=== PATIENT | male | born 1960 | race Caucasian/White ===

== ENCOUNTER → 2017-05-18 | Outpatient (CLI) | payer BC ==
--- NOTE | 2017-05-18 14:07 | XR ---
Left shoulder HISTORY: Left shoulder pain 3 views of the left shoulder No comparisons Bone mineralization, joint spaces and alignment are maintained. Left lung apex as visualized is reece l. IMPRESSION: No abnormalities evident, consider shoulder MRI for better evaluation.
== END | disposition home or self-care (01) ==
LOC: RADXRMAIN 11:30
PROVIDERS: ATTEND Family Medicine
DX: M25.512 Pain in left shoulder (principal)

== ENCOUNTER → 2017-06-01 | Outpatient (CLI) | payer BC ==
--- NOTE | 2017-06-01 13:36 | MR ---
EXAMINATION TYPE: MR shoulder LT wo con DATE OF EXAM: 06/01/2017 COMPARISON: Radiograph 05/18/2017 HISTORY: 56-year-old male pain in lt shoulder TECHNIQUE: Multiplanar, multisequence imaging of the left shoulder shoulder is performed without cont rast. FINDINGS: The long head biceps tendon shows abnormal intracapsular signal and becomes diminutive at the junctio n of the intracapsular and extracapsular portions. It is also medially subluxed along the lesser tube rosity with mild to moderate tenosynovial fluid. There appears to be a significant tear of the subscapularis tendon. Some of the superiormost bursal s ided fibers remain intact. A few of the articular sided fibers seem to be present along the inferior aspect of the tendon. Otherwise, full-thickness tear is present. There is heterogeneity of both the supraspinatus and infraspinatus tendons with intrasubstance change especially at the junction of the supraspinatus and infraspinatus tendons. There is some bursal side d fraying of the supraspinatus tendon. No high-grade partial or full thickness tear of either intrave nous or infraspinatus tendons. No atrophy of the rotator cuff musculature. There is mild fluid within the subacromial/subdeltoid bursa. Degenerative signal within the superior labrum with suggestion of a 5 mm paralabral cyst posterosuper iorly. There is fluid signal undercutting the labral chondral junction along the anterior glenoid all the way down to the anterior inferior quadrant. A small glenohumeral joint effusion is present. Minimal inferior spurring is noted. Mild degenerative joint space narrowing with capsular hypertrophy at the acromioclavicular joint. No significant impingement on the underlying cuff. No Hill-Sachs deformity or os acromiale. No suspicious bone marrow replacement. IMPRESSION: 1. Diffuse rotator cuff tendinosis with a significant full-thickness tear of the subscapularis tendon . Some of the most superior bursal sided fibers and most inferior articular sided fibers seem to randolph in intact. 2. This tear allows for medial subluxation of the long head biceps tendon which is tendinotic and lik jayden has a large partial thickness tear at the junction of the intracapsular and extracapsular portion s. Associated long head biceps tenosynovitis. 3. Intrasubstance change within the supraspinatus and infraspinatus tendon without high-grade partial or full-thickness tears. 4. Degenerative signal in the superior labrum. There may be an anterior labral tear rather than subla bral foramen given extension of signal down to the anterior-inferior quadrant. 5. Small glenohumeral joint effusion, small effusion within the subacromial/subdeltoid bursa, and mil d AC joint OA.
== END | disposition home or self-care (01) ==
LOC: RADMRIMAIN 08:02
PROVIDERS: ATTEND Physician Assistant
DX: S46.912A Strain of unspecified muscle, fascia and tendon at shoulder and upper arm level, left arm, initial encounter (principal); M75.102 Unspecified rotator cuff tear or rupture of left shoulder, not specified as traumatic; M19.012 Primary osteoarthritis, left shoulder

== ENCOUNTER → 2017-07-05 | Outpatient (CLI) | payer BC ==
[2017-07-05 10:06] LABS: EKG EKG PERFORMED
[2017-07-05 10:24] LABS: Basophils # (A) 0.1 k/uL (0-0.2); Basophils % (A) 1 %; CH 32.2; CHCM 34.5; Eosinophils # (A) 0.3 k/uL (0-0.7); Eosinophils % (A) 3 %; HCT 49.8 % (39.0-53.0); HDW 2.54; Luc # (Auto) 0.18; Luc % (Auto) 2; Lymphocytes # (A) 3.3 k/uL (1.0-4.8); Lymphocytes % (A) 33 %; MCV 93.9 fL (80.0-100.0); Mean Platelet Volume 6.9; Monocytes # (A) 0.5 k/uL (0-1.0); Monocytes % (A) 5 %; Neutrophils # (A) 5.6 k/uL (1.3-7.7); Neutrophils % (A) 56 %; RDW 13.1 % (11.5-15.5); WBC 9.9 k/uL (3.8-10.6); WBC (Perox) 9.86
[2017-07-05 10:51] LABS: Anion Gap 8 mmol/L; Carbon Dioxide 23 mmol/L (22-30); Chloride 106 mmol/L (98-107); Potassium 4.8 mmol/L (3.5-5.1); Sodium 137 mmol/L (137-145)
== END | disposition home or self-care (01) ==
LOC: LABPAT 09:32
PROVIDERS: ATTEND Orthopaedic Surgery
DX: Z01.810 Encounter for preprocedural cardiovascular examination (principal); M75.42 Impingement syndrome of left shoulder; Z01.812 Encounter for preprocedural laboratory examination
CPT/HCPCS: 80051; 85025; 93005

== ENCOUNTER 2017-07-14 08:40 | Day surgery (SDC) | payer BC ==
[2017-07-12 15:19] VITALS: BMI 22.7
--- NOTE | 2017-07-13 14:12 | HP ---
HISTORY AND PHYSICAL DATE OF ADMISSION: 07/14/2017 iGovani Goldman is a 56-year-old patient seen with progressive left shoulder pain. After treatment options were discussed, he elected to proceed with left shoulder arthroscopy. Consent was obtained. PAST MEDICAL HISTORY: Noncontributory. PAST SURGICAL HISTORY: Eye surgery. DAILY MEDICATIONS: Tramadol. ALLERGIES: None. SOCIAL HISTORY: Patient smokes cigarettes. PHYSICAL EVALUATION LEFT SHOULDER: Flexion 140 degrees. Abduction 120 degrees. External rotation is 25 degrees with weakness, tenderness along the anterolateral acromion rotator cuff insertion site. Impingement is positive 90 degrees, distal neurovascular exam is intact. RADIOGRAPHS: Obtained of the left shoulder revealed a type 2 anterior acromion. Evidence for acromioclavicular joint osteoarthritis. Left shoulder MRI revealed rotator cuff tear, biceps subluxation with partial tear. IMPRESSION: Left shoulder impingement with rotator cuff tear, partial biceps tendon tear and acromioclavicular joint osteoarthritis. PLAN: Left shoulder arthroscopy with subacromial decompression, probable arthroscopic rotator cuff repair, Breonna procedure, probable biceps tenotomy and debridement. MMODL / IJN: [id number] /
[~2017-07-14 08:40] MED LIST: HYDROmorphone 1 MG/ML 1 ML SYRINGE IVP PRN; LACTATED RINGERS 1,000 ML IV SCH; ceFAZolin 1,000 MG in DEXTROSE/WATER 1 50ML.BAG IV ONE; fentaNYL (PF) 50 MCG/ML 2 ML AMP IV PRN
[2017-07-14] MEDS ORDERED: ONDANSETRON 4 MG/2 ML VIAL IVP ONE (09:21)
[2017-07-14] MEDS ORDERED: DEXAMETHASONE SOD PHOS (MDV) 100 MG/10 ML VIAL IV ONE (09:22)
[2017-07-14] MEDS ORDERED: MIDAZOLAM 2 MG/2 ML VIAL IV ONE (09:30)
[2017-07-14] MEDS ORDERED: ROPIVACAINE 5 MG/ML 30 ML VIAL ONE (10:22)
[2017-07-14] MEDS ORDERED: PROPOFOL 10 MG/ML 20 ML VIAL IV ONE (10:22)
[2017-07-14] MEDS ORDERED: fentaNYL (PF) 50 MCG/ML 2 ML AMP ONE (10:22)
[2017-07-14] MEDS ORDERED: LIDOCAINE 2%-EPI 1:100,000 20 ML VIAL ONE (10:22)
[2017-07-14] MEDS ORDERED: LIDOCAINE 1% INJ 10MG/ML (20 ML MDV) ONE (10:22)
[2017-07-14] MEDS ORDERED: ROCURONIUM BROMIDE 10 MG/ML 10 ML VIAL IV ONE (10:22)
[2017-07-14] MEDS ORDERED: NEOSTIGMINE 1 MG/ML 10 ML VIAL ONE (10:22)
[2017-07-14] MEDS ORDERED: GLYCOPYRROLATE 0.2 MG/ML 2 ML VIAL ONE (10:22)
[2017-07-14] MEDS ORDERED: MIDAZOLAM 2 MG/2 ML VIAL ONE (10:22)
[2017-07-14 11:57] VITALS: TEMP 97
--- NOTE | 2017-07-14 12:05 | P.OP ---
Date of Procedure: 07/14/17 Preoperative Diagnosis: Left shoulder impingement Postoperative Diagnosis: 1. Left shoulder impingement 2. Left shoulder partial rotator cuff tear 3. Left shoulder biceps tendon tear 4. Left shoulder superficial labral tear Procedure(s) Performed: 1. Left shoulder arthroscopic subacromial decompression 2. Left shoulder arthroscopic debridement partial rotator cuff tear 3. Left shoulder arthroscopic debridement biceps tendon stump 4. Left shoulder arthroscopic debridement superficial labral tear Implants: None Anesthesia: GETA, regional (Shoulder block) Surgeon: Alvaro Pickering Consumer Insight Analyst #1: Sam Gracia Estimated Blood Loss (ml): 10 Pathology: none sent Condition: stable Disposition: PACU Indications for Procedure: 56-year-old patient seen with progressive left shoulder pain. After treatment options were discussed he elected to proceed with arthroscopy. Operative Findings: See description of procedure Description of Procedure: Patient underwent a shoulder block by department of anesthesia. The patient was then taken to the operative suite. The patient underwent a general anesthetic by the department of anesthesia. The patient was placed into a lateral position and secured. There was appropriate padding of the bony prominence. Left shoulder was then prepped and draped in normal sterile orthopedic fashion. We placed the extremity in 10 pounds of longitudinal traction. A posterior incision was now made for a posterior working portal site. The trocar and cannula were inserted into the glenohumeral joint. Arthroscopy was initiated. Spinal needle was now inserted anteriorly, to ascertain the anterior working portal site. An incision was now made in that area, a trocar was inserted followed by a probe. There was an obvious biceps tendon tear present. There was a very large prominent stump present. There was superficial tearing of the anterior labrum present. There was an area anteriorly of grade 1 chondromalacia of the glenoid no osteochondral tears. There was a central area of grade 1 chondral malacia the humeral head with no osteochondral tears present. The posterior and inferior labrum were found to be intact. The superior labrum was diminutive but without tear. I proceeded reading that biceps stump down to the insertion area. I debrided the superficial labral tear anteriorly down to stable tissue. The residual labrum was found to be stable. At this point instruments removed from the glenohumeral joint. Utilizing the posterior working portal site, the trocar and cannula were inserted into the subacromial space. Arthroscopy initiated. I made an incision 2 fingerbreadths lateral to the acromion. I introduced my trocar followed by my ArthroCare ablator. I now began ablating thick subacromial bursal tissue, which exposed the undersurface of the anterior acromion. This was diminished subacromial space. There was a very prominent anterior acromion. A motorized bur was introduced and a subacromial decompression was performed. I also excised some osteophytes off the inferior aspect of the distal clavicle. The AC joint was visualized and noted to be moderately arthritic. I did not think enough toward a Breonna procedure. I turned my attention to the rotator cuff. There was obvious superficial tearing along the distal supraspinatus area. I used a motorized shaver and debrided that down to stable tissue. I thoroughly probed the area and did not appreciate an obvious perforation as residual tissue appeared to be robust. I injected 1 mL Allogen intra-articular. Instruments now removed from the portal sites. All portal sites were approximated with nylon suture. Sterile dressings were applied followed by a shoulder immobilizer. The patient was awakened, transferred to a bed, and taken to recovery in stable condition.
[2017-07-14] MEDS ORDERED: LACTATED RINGERS 1,000 ML IV ONE (12:30)
[2017-07-14 12:45] VITALS: RESP 18
[2017-07-14 13:51] VITALS: BP 134/88; PULSE 51
== END 2017-07-14 14:08 | disposition home or self-care (01) ==
LOC: OR 08:40
PROVIDERS: ATTEND Orthopaedic Surgery
DX: M25.812 Other specified joint disorders, left shoulder (principal); M75.112 Incomplete rotator cuff tear or rupture of left shoulder, not specified as traumatic; S46.212A Strain of muscle, fascia and tendon of other parts of biceps, left arm, initial encounter; S43.402A Unspecified sprain of left shoulder joint, initial encounter; X58.XXXA Exposure to other specified factors, initial encounter; M94.212 Chondromalacia, left shoulder; M25.712 Osteophyte, left shoulder; F17.210 Nicotine dependence, cigarettes, uncomplicated; Z79.891 Long term (current) use of opiate analgesic; Z79.899 Other long term (current) drug therapy
CPT/HCPCS: 64415; 29826; 29827; C1765; J2250; J2710; J2405; J2001; J3010; J0690; J1100; J2795; J2704

== ENCOUNTER → 2017-10-14 | Outpatient (CLI) | payer BC ==
--- NOTE | 2017-10-14 10:09 | MR ---
EXAMINATION TYPE: MR shoulder RT wo con DATE OF EXAM: 10/14/2017 COMPARISON: Radiograph 09/07/2017 HISTORY: 56-year-old male with right shoulder pain TECHNIQUE: Multiplanar, multisequence imaging of the right shoulder is performed without contrast. FINDINGS: There may be a small interstitial tear within the intracapsular portion of the lung and biceps tendon , sagittal T2 FS image 14. Period there is mild to moderate tenosynovial fluid along the lung and bic eps tendon sheath. There is partial articular sided tear which seems to involve the mid to inferior third subscapularis tendon. There is no muscle atrophy. Heterogeneity of both the supraspinatus and infraspinatus tendons. There is a full-thickness tear of the anterior to mid supraspinatus tendon measuring 1.2 cm long and 1.2 cm AP dimension. There is flui d interposed within the tendon gap and a contiguous mild subacromial/subdeltoid bursal effusion. The infraspinatus tendon remains intact. No rotator cuff muscle atrophy. There is mild degenerative change at the glenoid humeral joint. Mild capsular hypertrophy is noted. M inimal contact of the distal clavicle with the underlying cause. Evaluation the glenohumeral joint shows irregular signal extending within the superior labrum extendi ng to the superior aspect of the posterior labrum and into the biceps anchor. No paralabral cyst. Overall articular cartilage appears maintained. No significant joint effusion. No Hill-Sachs deformity or os acromiale. No suspicious bone marrow replacement. Patchy red marrow hyp erplasia is present and can be seen in the setting of anemia, obesity, smoking, and chronic disease. IMPRESSION: 1. Rotator cuff tendinosis with a full-thickness tear of the anterior to mid supraspinous tendon florian uring 1.2 x 1.2 cm. 2. Additional articular sided tear of the middle to inferior third subscapularis tendon. 3. No rotator cuff muscle atrophy. 4. SLAP tear. 5. Interstitial tear extending into the intracapsular long head biceps tendon with associated tenosyn ovitis.
== END | disposition home or self-care (01) ==
LOC: RADMRIMAIN 09:07
PROVIDERS: ATTEND Orthopaedic Surgery
DX: S46.811A Strain of other muscles, fascia and tendons at shoulder and upper arm level, right arm, initial encounter (principal); S43.431A Superior glenoid labrum lesion of right shoulder, initial encounter; S46.111A Strain of muscle, fascia and tendon of long head of biceps, right arm, initial encounter; M65.811 Other synovitis and tenosynovitis, right shoulder

== ENCOUNTER 2018-09-14 08:49 | Day surgery (SDC) | payer BC ==
[2018-09-12 08:36] VITALS: BMI 22.7
[~2018-09-14 08:49] MED LIST changes: -HYDROmorphone 1 MG/ML 1 ML SYRINGE IVP PRN; -ceFAZolin 1,000 MG in DEXTROSE/WATER 1 50ML.BAG IV ONE; -fentaNYL (PF) 50 MCG/ML 2 ML AMP IV PRN
[2018-09-14 09:18] VITALS: RESP 16; TEMP 98.3
[2018-09-14] MEDS ORDERED: LIDOCAINE 1% 20 ML VIAL (10MG/ML) FOR IV START INTRADERMA ONE (09:28)
--- NOTE | 2018-09-14 09:33 | P.GSHP ---
History of Present Illness H&P Date: 09/14/18 CHIEF COMPLAINT: Colon screen HISTORY OF PRESENT ILLNESS: The patient is a 57-year-old male who presents for colon screen. Lower endoscopy was offered for further evaluation and management. PAST MEDICAL HISTORY: Please see list. PAST SURGICAL HISTORY: Please see list. MEDICATIONS: Please see list. ALLERGIES: Please see list. SOCIAL HISTORY: No illicit drug use FAMILY HISTORY: No reports of Crohn disease or ulcerative colitis. REVIEW OF ORGAN SYSTEMS: CONSTITUTIONAL: No reports of fevers or chills. PHYSICAL EXAM: VITAL SIGNS: Stable GENERAL: Well-developed pleasant in no acute distress. HEENT: No scleral icterus. Extraocular movements grossly intact. Moist buccal mucosa. NECK: Supple without lymphadenopathy. CHEST: Unlabored respirations. Equal bilateral excursions. CARDIOVASCULAR: Regular rate and rhythm. Distal 2+ pulses. ABDOMEN: Soft, nontender, nondistended. MUSCULOSKELETAL: No clubbing, cyanosis, or edema. ASSESSMENT: 1. Colon screen. PLAN: 1. Recommend proceeding with a lower endoscopy Past Medical History Additional Past Medical History / Comment(s): HX OF LEFT EYE INJURY WITH SURGERY., PAIN LEFT SHOULDER. History of Any Multi-Drug Resistant Organisms: None Reported Additional Past Surgical History / Comment(s): EYE SURGERY Past Anesthesia/Blood Transfusion Reactions: No Reported Reaction Smoking Status: Current every day smoker - Past Family History Mother Family Medical History: No Reported History Father Family Medical History: No Reported History Medications and Allergies Home Medications Medication Instructions Recorded Confirmed Type Varenicline Tartrate [Chantix] 1 mg PO DAILY 07/12/17 09/12/18 History Sildenafil Citrate [Viagra] 25 mg PO ONCE PRN 08/27/17 09/12/18 History Allergies Allergy/AdvReac Type Severity Reaction Status Date / Time No Known Allergies Allergy Verified 09/14/18 09:15 Surgical - Exam Vital Signs Temp Pulse Resp BP Pulse Ox 98.3 F 62 16 145/87 95 09/14/18 09:17 09/14/18 09:17 09/14/18 09:17 09/14/18 09:17 09/14/18 09:17
[2018-09-14] MEDS ORDERED: LIDOCAINE 1% INJ 10MG/ML (20 ML MDV) ONE (10:03)
[2018-09-14] MEDS ORDERED: GLYCOPYRROLATE 0.2 MG/ML 2 ML VIAL ONE (10:03)
[2018-09-14] MEDS ORDERED: PROPOFOL 10 MG/ML 20 ML VIAL IV ONE (10:03)
--- NOTE | 2018-09-14 10:29 | P.PCN ---
Date of Procedure: 09/14/18 Description of Procedure: PREOPERATIVE DIAGNOSIS: Colonic surveillance History of high-risk colon polyps POSTOPERATIVE DIAGNOSIS: Colonic surveillance History of high-risk colon polyps Scattered diverticulosis. OPERATION: Colonoscopy to the ileocecal valve and appendiceal orifice. SURGEON: Kareen Vila MD. ANESTHESIA: MAC. INDICATIONS: The patient is a 57-year-old female who presents for colonoscopy surveillance due to high risk colon polyps. Last colonoscopy over one year ago. Benefits and risks were described and informed consent was obtained. DESCRIPTION OF PROCEDURE: The patient had undergone Gatorade, MiraLAX and Dulcolax prep. He had been brought into the operating room and laid in the left lateral decubitus position. After adequate intravenous sedation, the rectum was examined with 2% lidocaine jelly. No external hemorrhoids were encountered. The prostate was smooth and without abnormalities. The rectal tone was within normal limits. No lesions were palpated in the rectal vault. An Olympus colonoscope was advanced until the ileocecal valve and appendiceal orifice were clearly viewed. The prep was excellent with clear visualization of the mucosal folds. The scope was removed with visualization of each mucosal fold. Scattered diverticulosis was encountered. No colonic polyps were found. No evidence of focal colitis was found. Retroflexion of the scope demonstrated no internal hemorrhoids. The colon was desufflated. The patient had tolerated the procedure well. Withdrawal time was over 6 minutes. FINDINGS: No internal hemorrhoids No external prolapsed hemorrhoids. No arteriovenous malformations. No adenomatous polyps. Scattered diverticulosis. No focal colitis. RECOMMENDATIONS: Repeat lower endoscopy 3 years, 2020 due to high risk colon polyps Plan - Discharge Summary New Discharge Prescriptions: No Action Varenicline Tartrate [Chantix] 1 mg PO DAILY Sildenafil Citrate [Viagra] 25 mg PO ONCE PRN PRN Reason: E.D. Discharge Medication List Varenicline Tartrate [Chantix] 1 mg PO DAILY 07/12/17 [History] Sildenafil Citrate [Viagra] 25 mg PO ONCE PRN 08/27/17 [History]
[2018-09-14 10:56] VITALS: BP 138/84; PULSE 50
== END 2018-09-14 11:10 | disposition home or self-care (01) ==
LOC: ORWHC2ENDO 08:49
PROVIDERS: ATTEND Surgery Plastic and Reconstructive Surgery
DX: Z12.11 Encounter for screening for malignant neoplasm of colon (principal); K57.90 Diverticulosis of intestine, part unspecified, without perforation or abscess without bleeding; Z86.010 Personal history of colon polyps; Z79.899 Other long term (current) drug therapy; F17.200 Nicotine dependence, unspecified, uncomplicated
CPT/HCPCS: J2001; J2704; G0105; 45378

== ENCOUNTER 2020-08-05 11:54 | Emergency (ER) | payer BC ==
[2020-08-05 12:29] VITALS: RESP 18
--- NOTE | 2020-08-05 12:50 | ED ---
Lower Extremity Injury HPI - General Chief Complaint: Extremity Injury, Lower Stated Complaint: R Ankle Injury Time Seen by Provider: 08/05/20 12:32 Source: patient, RN notes reviewed Mode of arrival: ambulatory Limitations: no limitations - History of Present Illness Initial Comments: 59-year-old male presents emergency Department chief complaint of right ankle injury. Patient states that he did not realize his foot fussy once sitting up and states it rolled. Patient with her ankle foot pain presents from this happened yesterday. No other injuries noted. - Related Data Home Medications Medication Instructions Recorded Confirmed Varenicline Tartrate [Chantix] 1 mg PO DAILY 07/12/17 09/12/18 Sildenafil Citrate [Viagra] 25 mg PO ONCE PRN 08/27/17 09/12/18 Allergies Allergy/AdvReac Type Severity Reaction Status Date / Time No Known Allergies Allergy Verified 09/14/18 09:15 Review of Systems ROS Statement: Those systems with pertinent positive or pertinent negative responses have been documented in the HPI. ROS Other: All systems not noted in ROS Statement are negative. Past Medical History Additional Past Medical History / Comment(s): HX OF LEFT EYE INJURY WITH SURGERY., PAIN LEFT SHOULDER. History of Any Multi-Drug Resistant Organisms: None Reported Additional Past Surgical History / Comment(s): EYE SURGERY Past Anesthesia/Blood Transfusion Reactions: No Reported Reaction Past Psychological History: No Psychological Hx Reported Past Alcohol Use History: Occasional Past Drug Use History: None Reported - Past Family History Mother Family Medical History: No Reported History Father Family Medical History: No Reported History General Exam Limitations: no limitations General appearance: alert, in no apparent distress Head exam: Present: atraumatic, normocephalic, normal inspection Neck exam: Present: normal inspection, full ROM. Absent: tenderness, meningismus, lymphadenopathy Respiratory exam: Present: normal lung sounds bilaterally. Absent: respiratory distress, wheezes, rales, rhonchi, stridor Cardiovascular Exam: Present: regular rate, normal rhythm, normal heart sounds. Absent: systolic murmur, diastolic murmur, rubs, gallop, clicks Extremities exam: Present: other (Right ankle, foot there is ecchymosis, moderate swelling noted tenderness on the lateral portion neurovascular intact no proximal tib-fib tenderness) Course Vital Signs 08/05/20 12:27 Temperature 99.1 F Pulse Rate 69 Respiratory 18 Rate Blood Pressure 147/91 O2 Sat by Pulse 98 Oximetry Medical Decision Making - Medical Decision Making X-rays were reviewed and read by radiologist there is no acute fracture. Angelica ent is a right ankle right foot sprain. Disposition Clinical Impression: Right ankle sprain, Right foot sprain Disposition: HOME SELF-CARE Condition: Stable Instructions (If sedation given, give patient instructions): Ankle Sprain (ED), Foot Sprain (ED) Additional Instructions: Please return to the Emergency Department if symptoms worsen or any other concerns. Is patient prescribed a controlled substance at d/c from ED?: No Referrals: Louie Clay MD [Primary Care Provider] - 1-2 days Time of Disposition: 13:35
--- NOTE | 2020-08-05 13:33 | XR ---
EXAMINATION TYPE: XR ankle complete RT, XR foot complete RT DATE OF EXAM: 08/05/2020 CLINICAL HISTORY: Pain from injury one day ago TECHNIQUE: Frontal, lateral and oblique images of the right ankle and foot are obtained. COMPARISON: None. FINDINGS: There is no acute fracture/dislocation evident in the right foot or ankle. The ankle mort ise appears within normal limits. The joint spaces are preserved. Normal osseous mineralization. Ov erlying soft tissue is unremarkable. IMPRESSION: There is no acute fracture or dislocation in the right ankle or foot.
[2020-08-05 13:49] VITALS: BP 165/98; PULSE 70; TEMP 97.8
== END 2020-08-05 13:49 | disposition home or self-care (01) ==
LOC: EC 11:54
DX: S93.401A Sprain of unspecified ligament of right ankle, initial encounter (principal); S93.601A Unspecified sprain of right foot, initial encounter; Z79.899 Other long term (current) drug therapy; W19.XXXA Unspecified fall, initial encounter
CPT/HCPCS: 73610; 73630; 99283; 29515; L4350

== ENCOUNTER → 2021-11-21 | Outpatient (CLI) | payer BC | END | disposition home or self-care (01) | LOC: LABPAT 09:50 | PROVIDERS: ATTEND Surgery Plastic and Reconstructive Surgery | DX: Z20.822 Contact with and (suspected) exposure to COVID-19 (principal) | CPT/HCPCS: U0003; C9803 ==

== ENCOUNTER 2021-11-26 08:23 | Day surgery (SDC) | payer BC ==
[2021-11-20 15:23] VITALS: BMI 22.8
[~2021-11-26 08:23] MED LIST changes: +LIDOCAINE 1% (10MG/ML) FOR IV START INTRADERMA PRN
--- NOTE | 2021-11-26 08:38 | P.GSHP ---
History of Present Illness H&P Date: 11/26/21 CHIEF COMPLAINT: Colon screen HISTORY OF PRESENT ILLNESS: The patient is a 60-year-old male who presents for colon screen. Lower endoscopy was offered for further evaluation and management. PAST MEDICAL HISTORY: Please see list. PAST SURGICAL HISTORY: Please see list. MEDICATIONS: Please see list. ALLERGIES: Please see list. SOCIAL HISTORY: No illicit drug use FAMILY HISTORY: No reports of Crohn disease or ulcerative colitis. REVIEW OF ORGAN SYSTEMS: CONSTITUTIONAL: No reports of fevers or chills. PHYSICAL EXAM: VITAL SIGNS: Stable GENERAL: Well-developed pleasant in no acute distress. HEENT: No scleral icterus. Extraocular movements grossly intact. Moist buccal mucosa. NECK: Supple without lymphadenopathy. CHEST: Unlabored respirations. Equal bilateral excursions. CARDIOVASCULAR: Regular rate and rhythm. Distal 2+ pulses. ABDOMEN: Soft, nontender, nondistended. MUSCULOSKELETAL: No clubbing, cyanosis, or edema. ASSESSMENT: 1. Colon screen. PLAN: 1. Recommend proceeding with a lower endoscopy Past Medical History Additional Past Medical History / Comment(s): Hx Lt Eye injury as child. Hx colon polyp History of Any Multi-Drug Resistant Organisms: None Reported Past Surgical History: Orthopedic Surgery Additional Past Surgical History / Comment(s): LT Eye surgery. Lt Shoulder surgery. Colonoscopy Past Anesthesia/Blood Transfusion Reactions: No Reported Reaction Smoking Status: Current every day smoker - Past Family History Mother Family Medical History: No Reported History Father Family Medical History: No Reported History Sister(s) Family Medical History: Cancer Additional Family Medical History / Comment(s): colon cancer Medications and Allergies Home Medications Medication Instructions Recorded Confirmed Type Sildenafil Citrate [Viagra] 100 mg PO ONCE PRN 08/27/17 11/20/21 History Allergies Allergy/AdvReac Type Severity Reaction Status Date / Time No Known Allergies Allergy Verified 11/20/21 15:05
[2021-11-26 09:02] VITALS: TEMP 97.3
[2021-11-26] MEDS ORDERED: PROPOFOL 10 MG/ML 20 ML VIAL IV ONE (09:56)
--- NOTE | 2021-11-26 10:29 | P.PCN ---
Date of Procedure: 11/26/21 Description of Procedure: PREOPERATIVE DIAGNOSIS: History of high-risk colon polyps POSTOPERATIVE DIAGNOSIS: History of high-risk colon polyps Scattered diverticulosis Colon polyp OPERATION: Colonoscopy to the ileocecal valve and appendiceal orifice. Colonoscopy with cold forceps biopsy SURGEON: Kareen Vila MD. ANESTHESIA: MAC. INDICATIONS: The patient is a 60-year-old male who presents for colonoscopy surveillance due to high risk colon polyps. Last colonoscopy 5 years ago. Benefits and risks were described and informed consent was obtained. DESCRIPTION OF PROCEDURE: The patient had undergone Sutab prep. He had been brought into the operating room and laid in the left lateral decubitus position. After adequate intravenous sedation, the rectum was examined with 2% lidocaine jelly. No external hemorrhoids were encountered. The prostate was smooth and without abnormalities. The rectal tone was within normal limits. No lesions were palpated in the rectal vault. An Olympus colonoscope was advanced until the ileocecal valve and appendiceal orifice were clearly viewed. The prep was excellent with clear visualization of the mucosal folds. The scope was removed with visualization of each mucosal fold. Scattered diverticulosis was encountered. No colonic polyps were found. No evidence of focal colitis was found. Retroflexion of the scope demonstrated no internal hemorrhoids. The colon was desufflated. The patient had tolerated the procedure well. Withdrawal time was over 6 minutes. FINDINGS: Aronchick preparation quality scale 1 (1-5) Internal hemorrhoids, grade 2 No external hemorrhoids No arteriovenous malformations. Sigmoid diverticulosis Removal of 1 polyp: - Cold forceps biopsy at 20 cm from the anal verge, 4 mm polyp, sigmoid colon No focal colitis. RECOMMENDATIONS: Repeat lower endoscopy 3 years, 2024 Plan - Discharge Summary Discharge Rx Participant: No New Discharge Prescriptions: Continue Sildenafil Citrate [Viagra] 100 mg PO ONCE PRN PRN Reason: E.D. Discharge Medication List Sildenafil Citrate [Viagra] 100 mg PO ONCE PRN 08/27/17 [History] Follow up Appointment(s)/Referral(s): Kareen Vila MD [STAFF PHYSICIAN] - 12/02/21 Patient Instructions/Handouts: Diverticulosis Diet (GEN), Diverticulosis (DC), Colorectal Polyps (GEN) Activity/Diet/Wound Care/Special Instructions: Repeat colonoscopy in 3 years2024 Discharge Disposition: HOME SELF-CARE
[2021-11-26 10:38] VITALS: RESP 16
[2021-11-26 10:55] VITALS: BP 127/79; PULSE 55
--- NOTE | 2021-11-26 11:14 | P.PN ---
Progress Note - Text Progress Note Date: 11/26/21 Patient reports painful inguinal hernia for over 1.5 months. Additional testing obtained 12-lead EKG demonstrating abnormality. CBC and BMP also obtained. Patient advised for immediate follow-up in the office 1 week.
[2021-11-26 11:27] LABS: Basophils % (A) 0 %; Eosinophils # (A) 0.3 k/uL (0-0.7); Eosinophils % (A) 3 %; HCT 47.7 % (39.0-53.0); HGB 15.9 gm/dL (13.0-17.5); Lymphocytes # (A) 2.4 k/uL (1.0-4.8); Lymphocytes % (A) 31 %; MCH 32.3 pg (25.0-35.0); MCHC 33.4 g/dL (31.0-37.0); MCV 96.5 fL (80.0-100.0); Mean Platelet Volume 8.2; Monocytes # (A) 0.4 k/uL (0-1.0); Monocytes % (A) 5 %; Neutrophils # (A) 4.7 k/uL (1.3-7.7); Neutrophils % (A) 59 %; Platelet Count 198 k/uL (150-450); RBC 4.94 m/uL (4.30-5.90); RDW 12.7 % (11.5-15.5); WBC 7.9 k/uL (3.8-10.6)
[2021-11-26 11:52] LABS: African American GFR (CKD) >90 (>60 ml/min/1.73 sqM); Anion Gap 5 mmol/L; Blood Urea Nitrogen 13 mg/dL (9-20); Calcium 9.3 mg/dL (8.4-10.2); Carbon Dioxide 26 mmol/L (22-30); Chloride 105 mmol/L (98-107); Glucose 88 mg/dL (74-99); Non-African American GFR(CKD) 84 (>60 ml/min/1.73 sqM); Potassium 4.6 mmol/L (3.5-5.1); Sodium 136 mmol/L (137-145)
== END 2021-11-26 11:33 | disposition home or self-care (01) ==
LOC: ORWHC2ENDO 08:23
PROVIDERS: ATTEND Surgery Plastic and Reconstructive Surgery
DX: K57.90 Diverticulosis of intestine, part unspecified, without perforation or abscess without bleeding (principal); F17.200 Nicotine dependence, unspecified, uncomplicated; Z86.010 Personal history of colon polyps
CPT/HCPCS: 45380; 88305; 80048; 85025; J2704

== ENCOUNTER → 2022-02-17 | Outpatient (CLI) | payer BC ==
--- NOTE | 2022-02-18 07:30 | CA ---
Transthoracic Echo Report Name: Giovani Goldman Age: 61 Gender: M : 1960 Exam Date: 02/17/2022 15:22 Exam Location: [facility] Ht (in): 66 Wt (lb): 145 Ordering Physician: Lalo Brar MD ([id number]) Attending/Referring Phys: Financial Institution Treasurer Marisol Hart RDCS Procedure CPT: Indications: R06.02 SHORTNESS OF BREATH Cardiac Hx: Technical Quality: Fair Contrast 1: Total Dose (mL): Contrast 2: Total Dose (mL): MEASUREMENTS (Male / Female) Normal Values 2D ECHO LV Diastolic Diameter PLAX 4.0 cm 4.2 - 5.9 / 3.9 - 5.3 cm LV Systolic Diameter PLAX 2.7 cm IVS Diastolic Thickness 1.1 cm 0.6 - 1.0 / 0.6 - 0.9 cm LVPW Diastolic Thickness 1.1 cm 0.6 - 1.0 / 0.6 - 0.9 cm LV Relative Wall Thickness 0.6 RV Internal Dim ED PLAX 3.7 cm LA Systolic Diameter LX 3.1 cm 3.0 - 4.0 / 2.7 - 3.8 cm LA Volume 46.6 cm 18 - 58 / 22 - 52 cm M-MODE Aortic Root Diameter MM 3.2 cm MV E Point Septal Separation 0.3 cm AV Cusp Separation MM 2.1 cm DOPPLER AV Peak Velocity 179.7 cm/s AV Peak Gradient 12.9 mmHg MV Area PHT 2.9 cm Mitral E Point Velocity 97.7 cm/s Mitral A Point Velocity 107.9 cm/s Mitral E to A Ratio 0.9 MV Deceleration Time 257.2 ms MV E' Velocity 9.1 cm/s Mitral E to MV E' Ratio 10.8 TR Peak Velocity 234.3 cm/s TR Peak Gradient 22.0 mmHg Right Ventricular Systolic Press 25.6 mmHg FINDINGS Left Ventricle Left ventricular ejection fraction is estimated at 55-60 %.Normal Left ventricular size, wall thickness, systolic function with no obvious regional wall motion abnormalities. Right Ventricle Mild right ventricular dilatation. Right ventricular systolic pressure within normal limits. Right Atrium Normal right atrial size. Left Atrium Normal left atrial size. Mitral Valve Structurally normal mitral valve. Trace to mild mitral regurgitation. Aortic Valve No aortic valve stenosis or regurgitation. Tricuspid Valve Mild tricuspid regurgitation. Pulmonic Valve Pulmonic valve not well visualized. Pericardium No pericardial effusion. Aorta Normal size aortic root and proximal ascending aorta. CONCLUSIONS Normal LV size and systolic function. Mildly dilated right ventricle. No significant abnormality on the Doppler exam. No pericardial effusion Previewed by: Dr. Lloyd Hartman MD (Electronically Signed) Final Date: 18 February 2022 07:29
== END | disposition home or self-care (01) ==
LOC: RADECHMAIN 15:05
PROVIDERS: ATTEND Internal Medicine Interventional Cardiology
DX: I51.7 Cardiomegaly (principal)
CPT/HCPCS: 93306

== ENCOUNTER 2022-03-30 09:05 | Day surgery (SDC) | payer BC ==
[2022-03-26 13:06] VITALS: BMI 23.3
--- NOTE | 2022-03-30 07:52 | P.GSHP ---
History of Present Illness H&P Date: 03/30/22 CHIEF COMPLAINT: Inguinal hernia, right. HISTORY OF PRESENT ILLNESS: The patient is a 61-year-old male who presents with a history of swelling and pain along the right groin. He has noted increased swelling including pain of the area. Now he presents for repair of his inguinal hernia. PAST MEDICAL HISTORY: Please see list. PAST SURGICAL HISTORY: Please see list. MEDICATIONS: Please see list. ALLERGIES: Please see list. SOCIAL HISTORY: No illicit drug use FAMILY HISTORY: No reports of Crohn disease or ulcerative colitis. REVIEW OF ORGAN SYSTEMS: CONSTITUTIONAL: No reports of fevers or chills. No reports of weight loss despite prior attempts. GI: Denies any blood in stools or constipation. PHYSICAL EXAM: VITAL SIGNS: Stable GENERAL: Well-developed pleasant in no acute distress. HEENT: No scleral icterus. Extraocular movements grossly intact. Moist buccal mucosa. NECK: Supple without lymphadenopathy. CHEST: Unlabored respirations. Equal bilateral excursions. CARDIOVASCULAR: Regular rate and rhythm. Distal 2+ pulses. ABDOMEN: Soft, nondistended. No peritoneal signs. Moderate tenderness right lower quadrant MUSCULOSKELETAL: No clubbing, cyanosis, or edema. ASSESSMENT: 1. Inguinal hernia, right initial and symptomatic. PLAN: 1. Recommend proceeding robotic inguinal repair with mesh with possible bilateral approach. 2. Benefits and risks of surgical intervention was discussed including possibility of open technique. 3. DVT prophylaxis. 4. Antibiotic prophylaxis. 5. He is elevated risk due to cardiac history. Cardiology clearance obtained 03/14/2022 Past Medical History Additional Past Medical History / Comment(s): Hx Lt Eye injury as child. Hx colon polyp History of Any Multi-Drug Resistant Organisms: None Reported Past Surgical History: Orthopedic Surgery Additional Past Surgical History / Comment(s): LT Eye surgery. Lt Shoulder surgery. 3 colonoscopies. Past Anesthesia/Blood Transfusion Reactions: No Reported Reaction Smoking Status: Current every day smoker - Past Family History Mother Family Medical History: No Reported History Father Family Medical History: No Reported History Sister(s) Family Medical History: Cancer Additional Family Medical History / Comment(s): colon cancer Medications and Allergies Home Medications Medication Instructions Recorded Confirmed Type Sildenafil Citrate [Viagra] 100 mg PO ONCE PRN 08/27/17 03/26/22 History Allergies Allergy/AdvReac Type Severity Reaction Status Date / Time No Known Allergies Allergy Verified 03/26/22 12:54
[~2022-03-30 09:05] MED LIST changes: +ACETAMINOPHEN TAB 500 MG TAB PO PRN; +DEXAMETHASONE SOD PHOSPHATE 4 MG/ML 1 ML VIAL IV ONE; +GABAPENTIN 300 MG CAP PO PRN; +HEPARIN SODIUM,PORCINE/PF 5,000 UNIT/0.5 ML SYRINGE SQ PRN; +HYDROmorphone 0.5 MG/0.5 ML SYRINGE IVP PRN; +MELOXICAM 7.5 MG TAB PO PRN; +METOCLOPRAMIDE 5 MG/ML 2 ML VIAL IVP PRN; +ONDANSETRON 4 MG/2 ML VIAL IVP ONE; +TAMSULOSIN 0.4 MG CAP.ER.24H PO PRN
[2022-03-30 09:32] VITALS: RESP 16
[2022-03-30 10:20] LABS: Basophils # (A) 0.1 k/uL (0-0.2); Basophils % (A) 2 %; Eosinophils # (A) 0.2 k/uL (0-0.7); Eosinophils % (A) 2 %; HCT 52.6 % (39.0-53.0); HGB 17.7 gm/dL (13.0-17.5); Lymphocytes # (A) 2.2 k/uL (1.0-4.8); Lymphocytes % (A) 25 %; MCH 32.9 pg (25.0-35.0); MCHC 33.7 g/dL (31.0-37.0); MCV 97.5 fL (80.0-100.0); Monocytes # (A) 0.5 k/uL (0-1.0); Monocytes % (A) 5 %; Neutrophils # (A) 5.8 k/uL (1.3-7.7); Neutrophils % (A) 65 %; Platelet Count 245 k/uL (150-450); RDW 13.6 % (11.5-15.5)
[2022-03-30] MEDS ORDERED: fentaNYL (PF) 50 MCG/ML 2 ML AMP IV ONE (10:26)
[2022-03-30] MEDS ORDERED: MIDAZOLAM 2 MG/2 ML VIAL IV ONE (10:26)
[2022-03-30] MEDS ORDERED: PHENYLEPHRINE-0.9% NACL SYG 1,000 MCG/10 ML SYRINGE ONE (11:07)
[2022-03-30] MEDS ORDERED: NEOSTIGMINE 1 MG/ML 10 ML VIAL ONE (11:07)
[2022-03-30] MEDS ORDERED: KETOROLAC 15 MG/ML 1 ML VIAL ONE (11:07)
[2022-03-30] MEDS ORDERED: MIDAZOLAM 2 MG/2 ML VIAL ONE (11:07)
[2022-03-30] MEDS ORDERED: HYDROmorphone (PF) 1 MG/ML ONE (11:07)
[2022-03-30] MEDS ORDERED: SODIUM CHLORIDE 0.9% (PF) 10 ML VIAL ONE (11:07)
[2022-03-30] MEDS ORDERED: SUCCINYLCHOLINE CHLORIDE 100 MG/5 ML SYR IV ONE (11:07)
[2022-03-30] MEDS ORDERED: LIDOCAINE 2% INJ 20 MG/ML (2 ML VIAL) ONE (11:07)
[2022-03-30] MEDS ORDERED: fentaNYL (PF) 50 MCG/ML 2 ML AMP ONE (11:07)
[2022-03-30] MEDS ORDERED: ROPIVACAINE 5 MG/ML 30 ML VIAL ONE (11:07)
[2022-03-30] MEDS ORDERED: GLYCOPYRROLATE 0.2 MG/ML 2 ML VIAL ONE (11:07)
[2022-03-30] MEDS ORDERED: PROPOFOL 10 MG/ML 20 ML VIAL IV ONE (11:07)
[2022-03-30] MEDS ORDERED: LIDOCAINE 4% LTA KIT (4 ML) TOPICAL ONE (11:07)
[2022-03-30] MEDS ORDERED: ROCURONIUM 10 MG/ML (5 ML VIAL) IV ONE (11:07)
[2022-03-30 11:24] LABS: African American GFR (CKD) >90 (>60 ml/min/1.73 sqM); Anion Gap 8 mmol/L; Blood Urea Nitrogen 14 mg/dL (9-20); Calcium 9.1 mg/dL (8.4-10.2); Carbon Dioxide 23 mmol/L (22-30); Chloride 107 mmol/L (98-107); Glucose 113 mg/dL (74-99); Non-African American GFR(CKD) >90 (>60 ml/min/1.73 sqM); Potassium 4.5 mmol/L (3.5-5.1); Sodium 138 mmol/L (137-145)
[2022-03-30] MEDS ORDERED: LIDOCAINE 0.5%-EPI 1:200,000 50 ML VIAL SQ ONE (11:34)
[2022-03-30] MEDS ORDERED: BUPIVACAIN-EPI 0.5%-1:200,000 30 ML VIAL SQ ONE (11:34)
--- NOTE | 2022-03-30 11:44 | P.ANPRN ---
Procedure Note - Anesthesia - Nerve Block Performed Bilateral Erector Spinae Time Out Performed: Yes (10:25) Date of Procedure: 03/30/22 Procedure Start Time: : Procedure Stop Time: 10:36 Location of Patient: PreOp Indication: Acute Post-Operative Pain, Requested by Surgeon (Dr Mixon) Sedation Type: Sedate with meaningful contact maintained Preparation: Sterile Prep Position: Prone Catheter: None Needle Types: Pajunk Needle Gauge: 21 Ultrasound used to visualize needle placement: Yes Ultrasound used to observe medication spread: Yes Injectate: 0.5% Ropivacaine (see comment for volume) (15cc +10 cc PF Normal saline each side) Blood Aspirated: No Pain Paresthesia on Injection Noted: No Resistance on Injection: Normal Image Stored and Saved: Yes Events: Uneventful and Well Tolerated
[2022-03-30] MEDS ORDERED: LACTATED RINGERS 1,000 ML IV ONE (12:06)
[2022-03-30 12:49] VITALS: TEMP 97.3
--- NOTE | 2022-03-30 12:50 | P.OP ---
Date of Procedure: 03/30/22 Description of Procedure: SURGEON: KAREEN VILA MD PREOPERATIVE DIAGNOSES: 1. Initial right inguinal hernia. 2. History of abnormal EKG POSTOPERATIVE DIAGNOSES: 1. Initial right inguinal hernia, direct 2. History of abnormal EKG 3. Subfascial right inguinal lipoma, 2 cm OPERATION: 1. Robotic-assisted da Ashok Xi laparoscopic right inguinal hernia repair with mesh, 11.[address] 2. Excision of subfascial right inguinal lipoma, 2 cm ANESTHESIA: General with local anesthetic ESTIMATED BLOOD LOSS: 5 mL. SPECIMENS REMOVED: Right inguinal hernia lipoma COMPLICATIONS: None. FINDINGS: 1. Nyhus type II direct inguinal hernia, reducible, initial, 1 cm 2. Non-absorbable 2-0 VLOC used 3. Subfascial right inguinal lipoma, 2 cm INDICATIONS: The patient is a 61-year-old gentleman who presents with history of right groin pain. Now presents for definitive surgical intervention. Laparoscopic versus open and robotic approaches were discussed. Benefits and risks including bleeding, infection, injury to the vas deferens as well as sterility and chronic groin pain were reviewed. Placement of mesh was also described. Informed consent was obtained. DESCRIPTION: In the preoperative area, the patient was marked with indelible marker along the inguinal hernia. The patient was brought to the operating room and initially laid in supine position. The abdomen had been prepped and draped in standard sterile fashion. Ioban draping was also placed. Prior to incision, a timeout protocol was confirmed with surgical team regarding patient's name including procedures to be performed and location along the right groin. Initial positioning for the robotic assisted ports were selected whereby 20 cm superior to the target anatomy, 0 degree 5 mm laparoscopic trocar entry was performed at the left upper quadrant. The abdomen was insufflated to 15 mmHg which he had tolerated well. Diagnostic laparoscopy demonstrated a indirect inguinal hernia along the right groin. Next, along the epigastrium, 8 mm robot trocar was placed. An 8-mm robotic trocar was placed under direct visualization at the right upper quadrant. An 8 mm port was placed at the left upper quadrant. All trocars were positioned between 8 to 10-cm apart from each other. An accessory trocar was placed on the right lateral abdominal wall 12 mm. The [email or web address] robot was primed, draped, prepared for docking along the right side of the patient. The patient was placed in Trendelenberg position 21-degrees. I then went to the Takes console. The lpn or medical assistant was at bedside for exchange of the robot arms and equipment. No hernia was identified along the left groin. The right inguinal hernia sac was evaginated whereby the peritoneum was scored using Endo scissors with cautery. Once completely reduced into the abdominal cavity, the peritoneal sac of the hernia was stripped along an direct inguinal hernia and a subfascial inguinal lipoma, 2-cm and sac was resected and then passed off for further pathological analysis. The size of the hernia defect was 1 cm with intraoperative films obtained. Using a 2-0 VLOC, the peritoneal defect of the right inguinal hernia site was closed using a pursestring suture. The defect was found to be completely closed with complete reduction of the right direct inguinal hernia was confirmed. As an onlay, an 11.[address] mesh by [employer] was initially cut in half and entered into the abdominal cavity via the 8 mm trocar. The mesh was tacked to the pelvis using 2-0 VLOC 9-inch length sutures. The robot was undocked from the patient's bedside. I then rescrubbed into the case. A 12 trocar in the right lateral abdominal wall was oversewn using [address] Insufflation was released from the abdominal cavity and all instruments were removed from the abdominal cavity. The rest of incisions were reapproximated using 4-0 Monocryl in a running subcuticular fashion. Incisions were cleansed using dilute hydrogen peroxide. Liquid glue was applied to the skin. At the end of the procedure, the needle, sponge and instrument counts had been verified correct by the surgical elastic knitter. The patient had tolerated the procedure well and was taken to the postanesthesia care unit in stable condition. Plan - Discharge Summary Discharge Rx Participant: Yes New Discharge Prescriptions: New Ibuprofen [Motrin] 600 mg PO Q8HR PRN #30 tab PRN Reason: Pain Acetaminophen Tab [Tylenol Tab] 1,000 mg PO Q6HR PRN #30 tablet PRN Reason: Pain Simethicone [Gas-X] 125 mg PO AC-TID PRN #20 capsule PRN Reason: Pain Continue Sildenafil Citrate [Viagra] 100 mg PO ONCE PRN PRN Reason: E.D. Discharge Medication List Sildenafil Citrate [Viagra] 100 mg PO ONCE PRN 08/27/17 [History] Acetaminophen Tab [Tylenol Tab] 1,000 mg PO Q6HR PRN #30 tablet 03/30/22 [Rx] Ibuprofen [Motrin] 600 mg PO Q8HR PRN #30 tab 03/30/22 [Rx] Simethicone [Gas-X] 125 mg PO AC-TID PRN #20 capsule 03/30/22 [Rx] Follow up Appointment(s)/Referral(s): Kareen Vila MD [STAFF PHYSICIAN] - 04/07/22 (Telehealth) Patient Instructions/Handouts: *Surgery [facility] - Managing Your Pain After Surgery Without Opioids, Laparoscopic Herniorrhaphy (IP), Inguinal Hernia (DC), Inguinal Hernia Repair (DC) Activity/Diet/Wound Care/Special Instructions: Using antibacterial soap. No lifting over 4 pounds 2 weeks, April 13 Use ice along incisions for today to prevent swelling. May shower. No bathtub soaks, swimming, hot tub for 2 weeks, April 13 Use ice along incisions for today to prevent swelling. Discharge Disposition: HOME SELF-CARE
[2022-03-30] MEDS ORDERED: oxyCODONE-APAP 7.5-325MG 1 EACH TAB PO PRN (13:35)
[2022-03-30] MEDS ORDERED: KETOROLAC 15 MG/ML 1 ML VIAL IVP PRN (13:35)
[2022-03-30] MEDS ORDERED: TAMSULOSIN 0.4 MG CAP.ER.24H PO PRN (13:36)
[2022-03-30 13:57] VITALS: BP 122/76; PULSE 52
== END 2022-03-30 15:43 | disposition home or self-care (01) ==
LOC: OR 09:05
PROVIDERS: ATTEND Surgery Plastic and Reconstructive Surgery
DX: K40.90 Unilateral inguinal hernia, without obstruction or gangrene, not specified as recurrent (principal); F17.200 Nicotine dependence, unspecified, uncomplicated; Z80.0 Family history of malignant neoplasm of digestive organs; Z86.010 Personal history of colon polyps; G89.18 Other acute postprocedural pain
CPT/HCPCS: 49650; S2900; 64999; 80048; 85025; 88304